=== PATIENT | male | born 1970 | race Caucasian/White ===

== ENCOUNTER 2019-08-21 18:11 | Emergency (ER) | payer OTHER, SELFPAY ==
[2019-08-21] MEDS ORDERED: Fentanyl 100 MCG/2 ML VIAL ONE ×3 (18:26→20:12)
[2019-08-21 19:05] LABS: #Basophils 0.1 thou/uL (0.0-0.2); #Lymphocytes 1.1 thou/uL (1.20-3.40); #Monocytes 1.2 thou/uL (0.11-0.59); #Neutrophils 14.7 thou/uL (1.40-6.50); %Basophils 0.3 % (0.0-1.0); %Eosinophils 0.2 % (0.0-10.0); %Lymphocytes 6.5 % (21.0-51.0); %Monocytes 6.8 % (0.0-10.0); %Neutrophils 86.2 % (42.0-75.0); Hemoglobin 15.2 g/dL (14.0-18.0); Mean Corpuscular HGB CONC 31.6 g/dL (32.0-36.0); Mean Corpuscular Hemoglobin 27.2 pg (27.0-31.0); Platelet Count 281 thou/uL (130-400); RBC Distribution Width 12.9 % (11.5-14.5)
[2019-08-21 19:13] LABS: Prothrombin Time 12.7 sec (12.0-14.7)
[2019-08-21 19:27] LABS: ALT (SGPT) 24 U/L (8-55); AST (SGOT) 25 U/L (5-34); Albumin 4.5 g/dL (3.5-5.0); Alkaline Phosphatase 226 U/L (40-110); Anion Gap 13 mmol/L (10-20); BUN (Urea Nitrogen) 23 mg/dL (8.9-20.6); Bilirubin, Total 1.3 mg/dL (0.2-1.2); Calc. Creatinine Clearance 0 mL/min (70-130); Calcium 9.8 mg/dL (7.8-10.44); Carbon Dioxide 23 mmol/L (22-29); Estimated GFR-MDRD 51; Globulin 3.4 g/dL (2.4-3.5); Glucose 117 mg/dL (70-105); Lipase 29 U/L (8-78); Potassium 3.8 mmol/L (3.5-5.1); Protein, Total 7.9 g/dL (6.0-8.3); Sodium 135 mmol/L (136-145)
[2019-08-21 20:03] LABS: Chloride 103 mmol/L (98-107)
[2019-08-21] MEDS ORDERED: PROPOFOL 20 ML ONE (20:12)
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
--- NOTE | 2019-08-21 21:30 | RAD ---
TWO VIEWS OF THE RIGHT SHOULDER: 08/21/19 COMPARISON: 08/21/19 at 6:05 p.m. HISTORY: Reduction of shoulder dislocation. FINDINGS: Two views of the right shoulder showed reduction of the previously seen inferior shoulder dislocation . The arm is also no longer held in the erect/upright position above the head. No fracture fragments are seen. IMPRESSION: Reduction of shoulder dislocation. POS: EAA
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
[2019-08-21] MEDS ORDERED: Ketorolac Tromethamine 30 MG/ML VIAL ONE (23:02)
[2019-08-21] MEDS ORDERED: Acetaminophen 325 MG TAB ONE (23:02)
--- NOTE | 2019-08-22 13:02 | EKG ---
Test Reason : PREOP Blood Pressure : / mmHG Vent. Rate : 067 BPM Atrial Rate : 067 BPM P-R Int : 186 ms QRS Dur : 094 ms QT Int : 402 ms P-R-T Axes : 048 033 065 degrees QTc Int : 424 ms Sinus rhythm with marked sinus arrhythmia Otherwise normal ECG Confirmed by GANESH DOLL DO ([id number]), editorial clerk HEDII RUBIO ([id number]) on 08/22/2019 1:02:00 PM Referred By: SHARMILA Confirmed By:GANESH DOLL DO
== END 2019-08-21 22:40 | disposition home or self-care (01) ==
LOC: ERS 18:11
DX: S43.034A Inferior dislocation of right humerus, initial encounter (principal); S30.811A Abrasion of abdominal wall, initial encounter; S00.81XA Abrasion of other part of head, initial encounter; I10 Essential (primary) hypertension; F17.220 Nicotine dependence, chewing tobacco, uncomplicated; V19.9XXA Pedal cyclist (driver) (passenger) injured in unspecified traffic accident, initial encounter
CPT/HCPCS: 23650; 36415; 70450; 71045; 71260; 72125; 74177; 80053; 83690; 85025; 85610; 85730; 93005; 96374; 99152; J1885; J2704; J3010